=== PATIENT | female | born 1995 | race Caucasian/White ===

== ENCOUNTER 2016-10-04 12:28 | Emergency (ER) | payer MEDICAID ==
[2016-10-04 12:48] VITALS: TEMP 98.4; BMI 22.4
[2016-10-04 13:02] LABS: AUTOMATED BASOPHIL 0.5 % (0-2); AUTOMATED EOSINOPHIL 1.9 % (0-5); AUTOMATED LYMPH 23.2 % (17-44); AUTOMATED NEUTROPHIL 67.4 % (45-76)
[2016-10-04 13:05] LABS: LEUKOCYTES/URINE NEG (NEGATIVE); NITRITE/URINE NEG (NEGATIVE); RBC/URINE 0-2 (0-5); URINE OCCULT BLOOD NEG (NEG/TRACE); WBC/URINE 0-2 (0-5)
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
[2016-10-04] MEDS ORDERED: ONDANSETRON HCL 4 MG ODT TAB PO ONE (14:48)
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
[2016-10-04 15:45] LABS: BLOOD UREA NITROGEN 8 MG/DL (7-17); CALCIUM 8.8 MG/DL (8.4-10.2); CALCULATED OSMOLALITY 265 MOs/Kg (270-290); CHLORIDE 104 mEq/L (98-107); GLUCOSE 87 MG/DL (70-99); SODIUM LEVEL 139 mEq/L (137-146); TOTAL PROTEIN 7.7 G/DL (6.3-8.2)
[2016-10-04] MEDS ORDERED: ACETAMINOPHEN 325 MG/TAB TABLET PO ONE (16:12)
[2016-10-04 16:35] VITALS: BP 106/55; PULSE 72
== END 2016-10-04 16:36 | disposition home or self-care (01) ==
LOC: ED 12:28
DX: K29.00 Acute gastritis without bleeding (principal); S09.90XA Unspecified injury of head, initial encounter; V86.99XA Unspecified occupant of other special all-terrain or other off-road motor vehicle injured in nontraffic accident, initial encounter; Y93.9 Activity, unspecified
CPT/HCPCS: 36415; 70450; 80053; 81001; 81025; 85025; 99283; J3490